=== PATIENT | female | born 1950 | race Caucasian/White ===

== ENCOUNTER → 2016-07-12 | Outpatient (CLI) | payer OTHER, MEDICARE ==
--- NOTE | 2016-07-12 13:04 | MA ---
Screening Digital Mammogram Clinical Indications: Routine screening. Technique: Standard cephalocaudal and mediolateral oblique projections are obtained. An additional c c view is performed of the right breast. This examination is processed by the [facility] computer aided det ection system. Comparison: June 2015, June 2014, May 2013 and April 2012 Breast density: B; There are scattered fibroglandular densities. Findings: CAD was reviewed. No suspicious findings are identified. Impression: Negative mammogram. BI-RADS 1. Recommendation: Routine screening is recommended in one year. [facility] will send a result letter to the patient. Negative mammography should not preclude additional workup of a clinically suspicious finding. The patient's information is entered into a reminder system with a target due date for her next mammo gram.
== END ==
LOC: CIMAGING 10:43
DX: Z12.31 Encounter for screening mammogram for malignant neoplasm of breast (principal)
CPT/HCPCS: G0202

== ENCOUNTER → 2016-08-30 | Outpatient (CLI) | payer OTHER, MEDICARE | LOC: FIMAGING 14:28 | PROVIDERS: ATTEND Family Medicine | DX: M25.551 Pain in right hip (principal); M81.0 Age-related osteoporosis without current pathological fracture; E21.0 Primary hyperparathyroidism; K90.0 Celiac disease | CPT/HCPCS: 82607-90; 83516-90 ==

== ENCOUNTER → 2016-11-17 | Outpatient (CLI) | payer OTHER, MEDICARE | LOC: CIMAGING 08:09 | PROVIDERS: ATTEND Internal Medicine Pulmonary Disease | DX: R91.1 Solitary pulmonary nodule (principal); R91.8 Other nonspecific abnormal finding of lung field | CPT/HCPCS: 71250-PO ==

== ENCOUNTER → 2017-04-02 | Outpatient (CLI) | payer OTHER, MEDICARE | LOC: BHFA 10:00 | PROVIDERS: ATTEND Internal Medicine Cardiovascular Disease | DX: I35.0 Nonrheumatic aortic (valve) stenosis (principal) ==

== ENCOUNTER → 2017-09-26 | Outpatient (CLI) | payer OTHER, MEDICARE | LOC: CIMAGING 10:01 | PROVIDERS: ATTEND Internal Medicine Pulmonary Disease | DX: R91.8 Other nonspecific abnormal finding of lung field (principal); I25.10 Atherosclerotic heart disease of native coronary artery without angina pectoris | CPT/HCPCS: 71250-PO ==

== ENCOUNTER → 2017-10-17 | Outpatient (CLI) | payer OTHER, MEDICARE | LOC: FIMAGING 12:00 | PROVIDERS: ATTEND Family Medicine | DX: M54.2 Cervicalgia (principal); I65.23 Occlusion and stenosis of bilateral carotid arteries ==

== ENCOUNTER → 2017-12-18 | Outpatient (CLI) | payer OTHER, MEDICARE | LOC: BHFA 15:15 | PROVIDERS: ATTEND Internal Medicine Interventional Cardiology | DX: I50.32 Chronic diastolic (congestive) heart failure (principal); E78.5 Hyperlipidemia, unspecified ==

== ENCOUNTER → 2018-05-08 | Outpatient (CLI) | payer OTHER, MEDICARE | LOC: BHFA 08:30 | PROVIDERS: ATTEND Internal Medicine Cardiovascular Disease | DX: R07.9 Chest pain, unspecified (principal) | CPT/HCPCS: 78452; 93017; A9500; J2785 ==

== ENCOUNTER → 2018-05-10 | Outpatient (CLI) | payer OTHER, MEDICARE | LOC: FIMAGING 12:39 | PROVIDERS: ATTEND Family Medicine | DX: M53.3 Sacrococcygeal disorders, not elsewhere classified (principal) ==

== ENCOUNTER → 2018-09-18 | Outpatient (CLI) | payer OTHER, MEDICARE | LOC: EMCIMAGING 07:02 | PROVIDERS: ATTEND Family Medicine | DX: G95.9 Disease of spinal cord, unspecified (principal); M51.36 Other intervertebral disc degeneration, lumbar region; M79.606 Pain in leg, unspecified; R60.0 Localized edema | CPT/HCPCS: 72148-PN; 93970-PN ==

== ENCOUNTER → 2018-10-28 | Outpatient (CLI) | payer OTHER, MEDICARE | LOC: BRMIMAGING 08:29 | PROVIDERS: ATTEND Internal Medicine | DX: Z13.820 Encounter for screening for osteoporosis (principal); E83.52 Hypercalcemia; M85.80 Other specified disorders of bone density and structure, unspecified site ==